=== PATIENT | female | born 1995 | race African-American/Black ===

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

== ENCOUNTER 2017-08-03 23:31 | Emergency (ER) | payer SELFPAY ==
[~2017-08-03] VITALS: Ht 165.1 cm; Wt 70.0 kg
[~2017-08-03 23:31] MED LIST: ZANT150T2 PO; ZOFR4TAB PO
[2017-08-03 23:35] VITALS: BP 133/86; PULSE 76; RESP 16; TEMP 97.4; O2SAT 99
[2017-08-03] MEDS ORDERED: birth control (23:45)
--- NOTE | 2017-08-03 23:55 | PD ---
HPI Chief Complaint: Pain: Acute or Chronic Time Seen by Provider: 23:43 Travel History International Travel<30 days: No Contact w/Intl Traveler<30days: No Traveled to known affect area: No History of Present Illness HPI Patient comes in complaining of right anterior lateral lower rib pain when she sneezes that began today. Patient states she sneezes frequently and has done so most of her life. She denies taking medicine for this or been tested for it. Patient is concerned over the pain described as a dull ache when she sneezes. Patient denies doing anything for this prior coming emergency department. Not sneezing makes it better. Sneezing makes pain worse. Denies any radiation of the pain. Denies any trauma, shortness of breath, chest pain, abdominal pain, fevers, nausea, vomiting, or . PFSH Past Medical History Medical History: Denies Significant Hx Hx Anticoagulant Therapy: No Cardiovascular Problems: No Chemotherapy: No Cerebrovascular Accident: No Diabetes: No Respiratory: No ?: Not LMP: CURRENT Past Surgical History Surgical History: No Previous Surgery Hysterectomy: No Social History Alcohol Use: Yes (SOCIALLY ) Tobacco Use: No Substance Use: Yes (WEED OCC) Allergies-Medications (Allergen,Severity, Reaction): Coded Allergies: No Known Allergies (Unverified Adverse Reaction, Unknown, 08/03/17) Reported Meds & Prescriptions Reported Meds & Active Scripts Active Reported [ control] Review of Systems Except as stated in HPI: all other systems reviewed are Neg Physical Exam Narrative GENERAL: Well-developed, well nourished, in no acute distress, and non-ill appearing. Eating [employer]. SKIN: Focused skin assessment warm and dry. HEAD: Atraumatic. Normocephalic. EYES: Pupils equal and round. EOMI. No scleral icterus. No injection or drainage. ENT: No nasal bleeding or discharge. Mucous membranes pink and moist. NECK: Trachea midline. Supple. No nuclear rigidity. CARDIOVASCULAR: Regular rate and rhythm. No murmur appreciated. RESPIRATORY: No accessory muscle use. No respiratory distress. Clear to auscultation. Breath sounds equal bilaterally. No crepitus or step-off. Patient reports mild tenderness to right lateral anterior lower rib cage to palpation. MUSCULOSKELETAL: No obvious deformities. No clubbing. No cyanosis. No edema. Full range of motion. NEUROLOGICAL: Awake and alert. No obvious cranial nerve deficits. Motor grossly within normal limits. Normal speech. PSYCHIATRIC: Appropriate mood and affect; insight and judgment normal. Data Data Last Documented VS Vital Signs Date Time Temp Pulse Resp B/P (MAP) Pulse Ox O2 Delivery O2 Flow Rate FiO2 08/03/17 23:57 08/03/17 23:35 97.4 76 16 99 Room Air Orders Orders Ed Discharge Order (08/03/17 23:55) MDM Medical Decision Making Medical Screen Exam Complete: Yes Emergency Medical Condition: Yes Differential Diagnosis Fracture, strain, consider drainage, occasional, allergic rhinitis, allergies, sinusitis Narrative Course Patient was offered x-ray, but has declined. Patient in no obvious distress upon re-evaluation. Any questions/concerns in reference to patient diagnosis/ condition discussed and clarified prior to patient's discharge. Reinforced sheer importance of close follow up with patient's primary physician or primary care clinic. Instructed patient to return to ED immediately, if symptoms return/ worsen. Patient showed understanding of above instructions. Further instructions and recommendations were detailed in discharge paperwork. Patient ambulated without difficulty out of ED at discharge. Diagnosis Primary Impression: Costochondritis, acute Additional Impression: Allergic rhinitis Qualified Codes: J30.89 - Other allergic rhinitis Referrals: [facility] Patient Instructions: Allergic Rhinitis (ED), Costochondritis (ED), General Instructions Additional Instructions: Follow-up with your primary care physician next week for reevaluation. Use over -the-counter Tylenol and/or ibuprofen as needed for pain. Follow instructions on the packaging. Use [id number] Claritin or Zyrtec daily for a year allergic rhinitis. Follow instructions on the packaging. Drink plenty of non- caffeinated and nonalcoholic fluids. Return to the emergency department if symptoms get worse. Disposition: 01 DISCHARGE HOME Condition: Stable [place] Aug 03, 2017 23:55
== END 2017-08-04 00:17 | disposition home or self-care (01) ==
LOC: NEPD 23:31
DX: M94.0 Chondrocostal junction syndrome [Tietze] (principal); J30.9 Allergic rhinitis, unspecified
CPT/HCPCS: 99282

== ENCOUNTER 2017-08-18 01:39 | Emergency (ER) | payer SELFPAY ==
[~2017-08-18 01:39] MED LIST changes: -ZANT150T2 PO; -ZOFR4TAB PO; +birth control
[2017-08-18 01:42] VITALS: BP 137/85; PULSE 79; RESP 16; TEMP 97.8; O2SAT 99
--- NOTE | 2017-08-18 02:05 | PD ---
HPI Chief Complaint: Musculoskeletal Complaint Time Seen by Provider: 01:56 Travel History International Travel<30 days: No Contact w/Intl Traveler<30days: No Traveled to known affect area: No History of Present Illness HPI 21-year-old black female presents to emergency Department with complaints of a lump between her breasts for the past 6 months. She states that she has noticed this in the past and was concerned that it may be an infection. She presents for evaluation. She denies any fever chills. Pain is mild. No drainage. No alleviating factors. PFSH Past Medical History Medical History: Denies Significant Hx Hx Anticoagulant Therapy: No Cardiovascular Problems: No Chemotherapy: No Cerebrovascular Accident: No Diabetes: No Respiratory: No Tetanus Vaccination: < 5 Years ?: Not Past Surgical History Surgical History: No Previous Surgery Hysterectomy: No Social History Alcohol Use: Yes (SOCIALLY ) Tobacco Use: No Substance Use: Yes (WEED OCC) Allergies-Medications (Allergen,Severity, Reaction): Coded Allergies: No Known Allergies (Unverified Adverse Reaction, Unknown, 08/18/17) Reported Meds & Prescriptions Reported Meds & Active Scripts Active Reported [ control] Review of Systems General / Constitutional: No: Fever Eyes: No: Visual changes HENT: No: Headaches Cardiovascular: No: Chest Pain or Discomfort Respiratory: No: Shortness of Breath Gastrointestinal: No: Abdominal Pain Genitourinary: No: Dysuria Musculoskeletal: No: Pain Skin: No Rash Neurologic: No: Weakness Psychiatric: No: Depression Endocrine: No: Polydipsia Hematologic/Lymphatic: No: Easy Bruising Physical Exam Narrative GENERAL: This is a well-nourished, well-developed patient, in no apparent distress. The patient's examined with Dalila garcia nurse present SKIN: No rashes, ecchymoses or lesions. Warm and dry. Patient has a nodular density between her breasts on the chest wall consistent with a sebaceous cyst. It measures approximately 1 x 1 cm. No erythema or warmth. HEAD: Atraumatic. Normocephalic. EYES: PERRL, EOMI, no discharge or injection. No scleral icterus. EARS: Clear NOSE: Nasal turbinates appear normal. THROAT: Mucosa pink and moist. Airway patent. NECK: Trachea midline. supple, moves head freely. LUNGS: Clear to auscultation. CV: Regular in rhythm. ABDOMEN: Soft nontender. EXT: No clubbing cyanosis or edema. Data Data Last Documented VS Vital Signs Date Time Temp Pulse Resp B/P (MAP) Pulse Ox O2 Delivery O2 Flow Rate FiO2 08/18/17 01:42 97.8 79 16 137/85 (102) 99 Room Air MDM Medical Decision Making Medical Screen Exam Complete: Yes Emergency Medical Condition: No Medical Record Reviewed: Yes Differential Diagnosis MDM: High Differential diagnoses: Abscess, folliculitis, cellulitis, lymphangitis, abrasion, contact dermatitis Narrative Course This is a sebaceous cyst nonaffected Diagnosis Primary Impression: Sebaceous cyst Patient Instructions: General Instructions Additional Instructions: Rest. Do not squeezer picked the area. Follow-up with a plastic surgeon or a ranger aide. Med/Other Pt SpecificInfo: No Meds Exist/No RX given Disposition: 01 DISCHARGE HOME Condition: Stable Kolby Aaron Aug 18, 2017 02:05
== END 2017-08-18 02:16 | disposition home or self-care (01) ==
LOC: NEPD 01:39
DX: L72.3 Sebaceous cyst (principal)
CPT/HCPCS: 99282

== ENCOUNTER 2017-09-23 14:10 | Emergency (ER) | payer MEDICAID ==
[~2017-09-23] VITALS: Ht 165.1 cm; Wt 73.2 kg
[2017-09-23 14:11] VITALS: BP 131/74; PULSE 95; RESP 16; TEMP 98.1; O2SAT 100
--- NOTE | 2017-09-23 14:48 | PD ---
HPI Chief Complaint: Development Lead Problem/Complaint Time Seen by Provider: 14:31 Travel History International Travel<30 days: No Contact w/Intl Traveler<30days: No Traveled to known affect area: No History of Present Illness HPI This is 21-year-old female who presents for evaluation of vaginal discharge. Symptoms started approximately August 30. She reports that the discharge is white in color. Initially he was quite pruritic and she used Monistat and fluconazole in her itchiness resolved. The white discharge has persisted which prompted evaluation. She denies any change in odor. Denies any pain. Denies any dysuria, increased urinary frequency, nausea or vomiting, abdominal pain. She reports that she was last sexually active in April 2017. She has no other complaints at this time. [facility] Past Medical History Hx Anticoagulant Therapy: No Cardiovascular Problems: No Chemotherapy: No Cerebrovascular Accident: No Diabetes: No Diminished Hearing: No Genitourinary: Yes (UTI's) Respiratory: No ?: Not Past Surgical History Hysterectomy: No Social History Alcohol Use: Yes (SOCIALLY ) Tobacco Use: No Substance Use: Yes (WEED OCC) Allergies-Medications (Allergen,Severity, Reaction): Coded Allergies: No Known Allergies (Unverified Adverse Reaction, Unknown, 08/18/17) Reported Meds & Prescriptions Reported Meds & Active Scripts Active Flagyl (Metronidazole) 500 Mg Tab 500 Mg PO BID 7 Days Review of Systems Except as stated in HPI: all other systems reviewed are Neg Physical Exam Narrative GENERAL: Well-developed well-nourished female in no acute distress SKIN: Warm and dry. HEAD: Atraumatic. Normocephalic. EYES: Pupils equal and round. No scleral icterus. No injection or drainage. ENT: No nasal bleeding or discharge. Mucous membranes pink and moist. NECK: Trachea midline. No JVD. CARDIOVASCULAR: Regular rate and rhythm. No murmur appreciated. RESPIRATORY: No accessory muscle use. Clear to auscultation. Breath sounds equal bilaterally. GASTROINTESTINAL: Abdomen soft, non-tender, nondistended. Hepatic and splenic margins not palpable. Pelvic examination the presence of a female nurse: There is some white vaginal discharge noted in the vaginal canal. There is no cervical motion tenderness, no adnexal tenderness, no palpable masses Data Data Last Documented VS Vital Signs Date Time Temp Pulse Resp B/P (MAP) Pulse Ox O2 Delivery O2 Flow Rate FiO2 09/23/17 16:53 09/23/17 14:29 89 18 09/23/17 14:11 98.1 100 Orders Orders Gc And Chlamydia Pcr (09/23/17 14:35) Wet Prep Profile (09/23/17 14:35) Ed Urine Pregnancytest Poc (09/23/17 14:35) Ed Discharge Order (09/23/17 16:42) Labs Laboratory Tests Test 09/23/17 15:15 Clue Cells (Wet Prep) NONE SEEN Vaginal Trichomonas (Wet Prep) NONE SEEN Vaginal Yeast (Wet Prep) NONE SEEN Chlamydia trachomatis DNA (PCR) DETECTED Neisseria gonorrhoeae DNA (PCR) NOT DETECTED MDM Medical Decision Making Medical Screen Exam Complete: Yes Emergency Medical Condition: Yes Medical Record Reviewed: Yes Interpretation(s) urine test negative Differential Diagnosis Vaginitis, bacterial vaginosis, trichomoniasis, cervicitis Narrative Course 21-year-old female with 3-4 weeks of white vaginal discharge. Wet prep was negative. The patient reports that she has not been sexually active in 6 months so chlamydia and gonorrhea are unlikely. Chlamydia and gonorrhea probe is pending at the time of discharge. The patient was given a prescription for Flagyl at the time of discharge. Diagnosis Primary Impression: Vaginal discharge Additional Instructions: Medications prescribed. Follow-up with primary care as needed and return for any emergent medical conditions. Med/Other Pt SpecificInfo: Prescription(s) given Scripts Metronidazole (Flagyl) 500 Mg Tab 500 MG PO BID for Infection for 7 Days, #14 TAB 0 Refills Prov: Love Roy MD 09/23/17 Disposition: 01 DISCHARGE HOME Condition: Stable Ephraim Walsh Sep 23, 2017 14:48
[2017-09-23] MEDS ORDERED: METR-1 PO (16:41)
== END 2017-09-23 16:54 | disposition home or self-care (01) ==
LOC: NEPD 14:10
DX: N89.8 Other specified noninflammatory disorders of vagina (principal)
CPT/HCPCS: 84703; 87210; 87491; 87591; 99283

== ENCOUNTER 2017-10-09 14:35 | Emergency (ER) | payer MEDICAID ==
[~2017-10-09] VITALS: Ht 167.6 cm; Wt 68.5 kg
[~2017-10-09 14:35] MED LIST changes: +METR-1 PO; -birth control
[2017-10-09 14:36] VITALS: BP 128/83; PULSE 81; RESP 18; TEMP 99.1; O2SAT 99
--- NOTE | 2017-10-09 17:38 | PD ---
HPI Chief Complaint: Medical Clearance Time Seen by Provider: 17:13 Travel History International Travel<30 days: No Contact w/Intl Traveler<30days: No Traveled to known affect area: No History of Present Illness HPI This is a 21-year-old female here for recheck after she was diagnosed with Chlamydia 2 weeks ago. Patient is a symptom. She denies vaginal discharge, dysuria, odor, lower abdominal pain. She reports her mother told her she needed to come back in for a repeat testing after treatment of Chlamydia first time. She reports she took the medication as prescribed and has not had intercourse since. PFSH Past Medical History Medical History: Denies Significant Hx Hx Anticoagulant Therapy: No Cardiovascular Problems: No Chemotherapy: No Cerebrovascular Accident: No Diabetes: No Diminished Hearing: No Genitourinary: Yes (UTI's) Respiratory: No ?: Unknown LMP: August Past Surgical History Hysterectomy: No Social History Alcohol Use: Yes (SOCIALLY ) Tobacco Use: No Substance Use: Yes (WEED OCC) Allergies-Medications (Allergen,Severity, Reaction): Coded Allergies: No Known Allergies (Unverified Adverse Reaction, Unknown, 08/18/17) Reported Meds & Prescriptions Reported Meds & Active Scripts Active Review of Systems Except as stated in HPI: all other systems reviewed are Neg General / Constitutional: No: Fever Physical Exam Narrative GENERAL: Alert and oriented 21-year-old female SKIN: Warm and dry. HEAD: Normocephalic. EYES: No scleral icterus. No injection or drainage. NECK: Supple CARDIOVASCULAR: Regular rate and rhythm GASTROINTESTINAL: Abdomen soft, non-tender, nondistended. No CVA tenderness Data Data Last Documented VS Vital Signs Date Time Temp Pulse Resp B/P (MAP) Pulse Ox O2 Delivery O2 Flow Rate FiO2 10/09/17 14:36 99.1 81 18 128/83 (98) 99 Room Air MDM Medical Decision Making Medical Screen Exam Complete: Yes Emergency Medical Condition: No Differential Diagnosis Medical screening exam Narrative Course This is a 21-year-old female who presents emergency department requesting repeat testing of chlamydia. She is asymptomatic. Her physical exam is benign. She reports that she has not had intercourse since she was treated. She came at the request of her mother who told her she needed to be retested. The patient has no symptoms. There is no medical emergency. She can follow-up outpatient with [facility] for recheck A medical screening exam was performed: At the time of evaluation the presenting medical condition was determined not to be of an emergent nature. The patient was given the option of receiving additional care, but declined. Patient was given options for additional community resources from which to obtain care. The Patient Has Been advised to seek medical attention for their presenting complaint. The patient has been advised to return to the ER at any time if an emergent condition develops. Diagnosis Primary Impression: Encounter for medical screening examination Referrals: Production Control Analyst [facility] Kely Santos Oct 09, 2017 17:38
== END 2017-10-09 17:48 | disposition left against medical advice (07) ==
LOC: NEPK 14:35
DX: A74.9 Chlamydial infection, unspecified (principal)
CPT/HCPCS: 99281